=== PATIENT | female | born 1990 | race Caucasian/White ===

== ENCOUNTER 2021-02-22 19:56 | Emergency (ER) | payer MEDICAID ==
[~2021-02-22] VITALS: Ht 167.6 cm; Wt 81.6 kg
[2021-02-22 19:59] VITALS: BP_SYST 113
[2021-02-22 20:47] VITALS: BP_SYST 113
== END 2021-02-22 20:47 ==
LOC: SED 19:56
DX: Z02.89 Encounter for other administrative examinations (principal)
CPT/HCPCS: 99283